=== PATIENT | male | born 1990 | race Caucasian/White ===

== ENCOUNTER 2017-02-17 20:39 | Emergency (ER) | payer BC, OTHER ==
[~2017-02-17] VITALS: Ht 188 cm; Wt 122.0 kg
[~2017-02-17 20:39] MED LIST: OXYC-360 PO; Z.0.NO CURRENT MEDS
[2017-02-17 20:57] VITALS: BP 116/77; PULSE 78; RESP 16; TEMP 98.7; O2SAT 97
--- NOTE | 2017-02-17 21:26 | PD ---
HPI Chief Complaint: Injury Time Seen by Provider: 21:21 Travel History International Travel<30 days: No Contact w/Intl Traveler<30days: No Traveled to known affect area: No History of Present Illness HPI 26-year-old male presents to the emergency room for evaluation of right ankle pain and swelling after injuring it on a trampoline yesterday. Patient states he does not know exactly how he came down on his ankle but he does not remember how exactly. He had immediate pain and swelling and heard a pop. When he got home he iced his leg, applied heat, and took Motrin. States he went to work today and had to walk all around all day but was trying to baby the affected limb. He denies paresthesias. Denies chronic medical conditions or daily medications. PFSH Past Medical History Medical History: Denies Significant Hx Diminished Hearing: No Tetanus Vaccination: Unknown Influenza Vaccination: Yes Past Surgical History Surgical History: No Previous Surgery Social History Alcohol Use: Yes ("OCCASIONALLY") Tobacco Use: No Substance Use: No Allergies-Medications (Allergen,Severity, Reaction): Coded Allergies: No Known Allergies (Verified , 02/17/17) Reported Meds & Prescriptions Reported Meds & Active Scripts Active Review of Systems Except as stated in HPI: all other systems reviewed are Neg Physical Exam Narrative GENERAL: Well-nourished, well-developed male in no acute distress. Afebrile. SKIN: Focused skin assessment warm/dry. Mild to moderate ecchymosis of right ankle. HEAD: Normocephalic. EYES: No scleral icterus. No injection or drainage. NECK: Supple, trachea midline. No JVD or lymphadenopathy. CARDIOVASCULAR: Regular rate and rhythm without murmurs, gallops, or rubs. RESPIRATORY: Breath sounds equal bilaterally. No accessory muscle use. EXTREMITY: Right ankle is extremely tender to palpation on the bilateral malleoli. There is moderate edema. Negative squeeze test. 2+ dorsalis pedis pulse. Full range of motion of the foot. Tenderness to palpation of the fifth metatarsal. Data Data Last Documented VS Vital Signs Date Time Temp Pulse Resp B/P Pulse Ox O2 Delivery O2 Flow Rate FiO2 02/17/17 21:23 20 02/17/17 20:57 98.7 78 116/77 97 Orders Ankle, Complete ([id number]) (02/17/17 ) Foot, Complete ([id number]) (02/17/17 ) Crutches (02/17/17 22:12) Splint Or Brace Apply/Monitor (02/17/17 22:12) MDM Medical Decision Making Medical Screen Exam Complete: Yes Emergency Medical Condition: Yes Medical Record Reviewed: Yes Differential Diagnosis Sprain versus fracture versus contusion versus strain Narrative Course 26-year-old male presents to the emergency room for evaluation of right ankle pain and swelling after injuring his ankle on a trampoline yesterday. Patient believes he twisted his ankle after landing. He denies any other injuries. States he has been able to walk on it since but with moderate pain. Physical exam reveals moderate edema and ecchymosis of the right lower extremity. It is neurovascularly intact with 2+ was fast pedis pulse. Tenderness to palpation in the right fifth metatarsal and bilateral malleoli. X-rays of the foot and ankle are negative. This is ankle sprain. Patient given ankle stirrup and crutches. Told to follow up with a primary care physician or return to the emergency room for worsening symptoms. He understands and agrees to plan. Diagnosis Primary Impression: Right ankle sprain Qualified Code: S93.401A - Sprain of right ankle, unspecified ligament, initial encounter Referrals: Primary Care Physician Patient Instructions: Ankle Sprain (ED), General Instructions Additional Instructions: Rest and drink plenty of fluids. Use splint and crutches as needed. Take ibuprofen with food as directed, as needed for pain. Elevate and apply ice to the affected area for 20 minutes at a time, as needed for pain and swelling. Follow-up with a primary care physician. Return to the emergency room for worsening symptoms. Disposition: 01 DISCHARGE HOME Condition: Stable Dodie Hart February 17, 2017 21:26
--- NOTE | 2017-02-17 22:05 | RADHPO ---
EXAM DATE/TIME: 02/17/2017 21:54 [facility] COMPARISON: No previous studies available for comparison. INDICATIONS : Right foot pain after patient fell off of trampoline yesterday MEDICAL HISTORY : None. SURGICAL HISTORY : None. ENCOUNTER: Initial ACUITY: 1 day PAIN SCORE: 6/10 LOCATION: Right lateral foot FINDINGS: Three view examination of the right foot demonstrates no soft tissue swelling, dislocation, or fractu re. The tarsal bones appear intact. The interphalangeal and metatarsophalangeal joints are intact. The calcaneus is intact. Bony mineralization is normal. Accessory ossification is present at the b ase of the fifth metatarsal. CONCLUSION: 1. There is no evidence of acute fracture. Petar Coto MD on February 17, 2017 at 22:03 Board Certified Radiologist. This report was verified electronically.
--- NOTE | 2017-02-17 22:06 | RADHPO ---
EXAM DATE/TIME: 02/17/2017 21:50 [facility] COMPARISON: No previous studies available for comparison. INDICATIONS : Right ankle pain after patient fell off of trampoline yesterday MEDICAL HISTORY : None. SURGICAL HISTORY : None. ENCOUNTER: Initial ACUITY: 1 day PAIN SCORE: 5/10 LOCATION: Right lateral ankle FINDINGS: Soft tissue swelling is present medially and laterally. There is no evidence of acute fracture. Bony mineralization is normal. The ankle mortise is intact. CONCLUSION: 1. There is no evidence of acute fracture. Petar Coto MD on February 17, 2017 at 22:04 Board Certified Radiologist. This report was verified electronically.
== END 2017-02-17 22:25 | disposition home or self-care (01) ==
LOC: PHEFT 20:39
DX: S93.401A Sprain of unspecified ligament of right ankle, initial encounter (principal); X58.XXXA Exposure to other specified factors, initial encounter; Y93.44 Activity, trampolining
CPT/HCPCS: 73610; 73630; 99283; E0113; L1906